=== PATIENT | male | born 1970 | race Caucasian/White ===

== ENCOUNTER 2017-03-22 00:08 | Emergency (ER) | payer MEDICAID ==
[~2017-03-22] VITALS: Ht 177.8 cm; Wt 89.8 kg
[~2017-03-22 00:08] MED LIST: AUGMENTIN 500 M1 TAB PO; AUGMENTIN 875-1 EACH PO; BACTRIM DS 8001 TAB PO; BACTROBAN2% TP; CIPRO 500MG TA500 MG PO; FLAGYL500 MG PO; FLONASE 50 MCG16 GM; KEFLEX 500MG.500 MG PO; LORTAB 5/500 501 TAB PO; NOMEDS *; PHENERGAN 25MG.25 M1 PO; PREDNISONE 20MG20 MG PO; SEPTRA DS 800 M1 TAB PO; VIBRAMYCIN 100100 MG PO; VICODIN 5/500 T1 TAB PO; ZANTAC 150150 MG PO; ZYRTEC ALLERGY10 MG PO
[2017-03-22 00:34] LABS: HEMOGLOBIN 15.4 g/dL (14.1-18.0); LYMPH # 1.6 K/mm3 (0.7-4.5); LYMPH % 12.7 % (10-50)
--- NOTE | 2017-03-22 01:24 | Emergency Room Report ---
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 N Clinical Suspician of Infection? N Mental Status: 1 - Regular (Normal Baseline) Sepsis Risk:Low Sepsis Risk Have you (or family members/close friends) recently traveled outside the [place]? N If Yes, where/when: Have you had exposure to infectious disease within the past month? N TB? Other? Specify: Source patient, RN notes reviewed, family, old records Exam Limitations no limitations Comment pt with 2 day hx of lower abd pain with nausea and has dec bowel movement and urination but no fever or vomiting - has hx of diverticulitis Cardiac Chest Pain Chest pain indicative of cardiac No Timing/Duration this evening Severity moderate ALLERGIES Coded Allergies: No Known Allergies (07/18/16) Home Medications Reported Medications No Home Medications (NO HOME MEDICATIONS) 1 X * ONCE History Medical History General CAD? No Angina: No MD: No Hypertension? No Hyperlipidemia? No CHF? No DVT? No PE? No COPD? No Asthma? No Anemia? No GERD? No Gastric ulcers? No GI Bleed? No Hernia? No Thyroid Problems? No Hypothyroidism? No CVA? No Seizures? No Diabetes? No Renal Insuffiency? No End Stage Renal Disease? No UTI? No Stones? No BPH? No GB Disease: No Nephritic Syndrome? No Asplenia? No Hepatitis? No Sickle Cell Disease? No Arthritis? No Migraines? No Cataracts? No Glaucoma? No MRSA? No HIV? No TB? No Anxiety? No Depression? No Cancer? Yes Site: VOCAL CHORDS More? Yes Additional hx: DIVERTICULITIS Immunization Hx DT/Tetanus 1-4 Years Ago Flu Refused Pneumonia Refuses Surgical Hx Previous Surgery?Y CIRCUMCISION I&D OF BOILS POLYPS VOCAL CHORDS COLONOSCOPY X2 POLYPS REMOVED COLON Family History Family Hx Diabetes Yes CAD Yes Hypertension Yes Hyperlipidemia No Cancer Yes TB No Social History Smoking Hx Smoker: Current Every Day Smoker Tobacco: Yes Type Cigarettes Packs/day 1 1/2 - 2 Packs Are you/the child exposed to second-hand smoke: Yes Alcohol Alcohol: No Drugs none Review of Systems All Other Systems Reviewed and Negative Constitutional denies fever Eyes denies drainage ENT denies: ear pain, epistaxis, throat pain. Respiratory denies cough, denies shortness of breath, denies wheezing Cardiovascular denies chest pain, denies palpitations, denies syncope Gastrointestinal see HPI, abdominal pain, denies diarrhea, nausea, vomiting Genitourinary denies: dysuria, frequency, hesitancy, hematuria. Musculoskeletal denies back pain, denies joint pain, denies joint swelling, denies neck pain Skin denies rash Psychiatric/Neurological denies headache, denies seizure Physical Exam Vital Signs Vital Signs Date Time Temp Pulse Resp B/P Pulse O2 O2 Flow FiO2 Ox Delivery Rate 03/22 137 20 03/22 137 20 03/22 0014 98.3 92 18 129/94 98 - WBC >12,000 or <4,000 or 10% bands? 2 or more SIRS Criteria Met? B/P:129/94 MAP:105 Creatinine >2.0? UA output<0.5ml/kg/hr for 2 hrs? Platelet count >100,000? Lactate >2.0mmol/1? INR >1.2 or PTT > than 60 sec? Evidence of Organ Dysfunction? Provider documented clinical suspician of infection? N Sepsis Criteria Count: 1 Sepsis Risk: Low Sepsis Risk General Appearance no apparent distress Eye Exam - bilateral eye PERRL, bilateral eye EOMI Ear, Nose, Throat normal ENT inspection Neck supple Respiratory Status No: respiratory distress. 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 No Results/Orders Laboratory Tests 03/22/17 0130: Urine Color YELLOW, Urine Appearance CLEAR, Urine pH 6.0, Ur Specific [place] <= 1.005, Urine Protein NEGATIVE, Urine Ketones NEGATIVE, Urine Blood 2+ H, Urine Nitrate NEGATIVE, Urine Bilirubin NEGATIVE, Urine Urobilinogen 0.2, Ur Leukocyte Esterase NEGATIVE, Urine RBC 5-10, Urine WBC 10-20, Ur Squamous Epith Cells 5-10 , Urine Glucose NEGATIVE 03/22/17 0025: Sodium 137, Potassium 3.2 L, Chloride 102, Carbon Dioxide 26, BUN 8, Creatinine 0.9, Estimated Creat Clear 129, Estimated GFR (MDRD) 90, Glucose 108 H, Calcium 8.9, Total Bilirubin 0.6, AST 11 L, ALT 19, Alkaline Phosphatase 113, Total Protein 7.4, Albumin 3.7, Globulin 3.7 H, Albumin/Globulin Ratio 1.0 L, Amylase 33, Lipase 53 L, WBC 12.8 H, RBC 5.24, Hgb 15.4, Hct 47.1, MCV 90.0, RDW 13.6, Plt Count 175, MPV 7.3 L, Gran % 79.1, Gran # 10.1 H, Lymphocytes % 12.7, Monocytes % 5.9, Eosinophils % 2.1, Basophils % 0.2, Lymphocytes # 1.6, Monocytes # 0.8, Eosinophils # 0.3, Basophils # 0.0, PUBS MCHC 32.8, MCH 29.5 Current Medication Orders Sig/Gene Start time Last Medication Dose Route Stop Time Status Admin Ketorolac 0 .STK-MED ONE 03/22 131 DC Tromethamine .ROUTE Levofloxacin 0 .STK-MED ONE 03/22 131 DC .ROUTE Metronidazole 100 ML .STK-MED ONE 03/22 131 DC IV Ondansetron HCl 0 .STK-MED ONE 03/22 131 DC .ROUTE Ketorolac 30 MG ONCE ONE 03/22 130 DC 03/22 Tromethamine IV 03/22 Levofloxacin 500 MG ONCE ONE 03/22 130 DC 03/22 PO 03/22 Metronidazole 100 ML ONCE ONE 03/22 130 AC 03/22 IV 03/22 Morphine Sulfate 4 MG ONCE ONE 03/22 130 DC 03/22 IV 03/22 Morphine Sulfate 0 .STK-MED ONE 03/22 130 DC .ROUTE Ondansetron HCl 4 MG ONCE ONE 03/22 130 DC 03/22 IV 03/22 Sodium Chloride 10 ML PRN PRN 03/22 0030 AC IV 03/23 0019 Orders Procedure Date/time Status DIET-NOTHING BY MOUTH 03/22 B Active CULTURE, URINE 03/[address] ABD & PELVIS W/O CONTRAST 03/[address] ABD/PELVIS REQ 03/22 001 Active IV SALINE LOCK 03/22 001 Active URINALYSIS/COMPLETE 03/22 001 Complete LIPASE 03/22 001 Complete CBC WITH AUTO DIFF 03/22 19 Complete CHEM 12 PROFILE 03/22 001 Complete AMYLASE 03/22 001 Complete XRAY/CT/US XRAY/CT/US CT abdomen, pelvis CT interpretation by discussed w/radiologist Time results known: 0147 CT Results abnormal (diverticulitis) Departure Departure Time of Disposition 0148 Disposition DC Home or Self Care(routine) Clinical Impression Primary Impression: Diverticulitis Condition STABLE Referrals Karine MELLO,Garett Sandhu (Family) Patient Instructions DI for Diverticulitis Additional Instructions use meds and see pcp for follow up Discharge Counseling Counseled pt/family regarding diagnosis, test results, medications/RX, follow up needs Prescriptions Current Visit Scripts Ciprofloxacin HCl (Cipro 500MG TAB) 500 MG PO BID #14 TAB Metronidazole (Flagyl) 500 MG PO TID #21 TAB HYDROCODONE/ACETAMINOPHEN ([place] 5-325 Tablet) 1 TAB PO Q6HP PRN pain #10 TAB ED Critical Care Critical Care No at 0151
[2017-03-22 01:35] LABS: URINE BILIRUBIN - DIPSTICK NEGATIVE (NEG); URINE BLOOD 2+ (NEG)
[2017-03-22] MEDS ORDERED: FLAGYL500 M1 PO (01:50)
[2017-03-22] MEDS ORDERED: NORCO 325 MG-51 TAB PO (01:50)
[2017-03-22] MEDS ORDERED: CIPRO 500MG TA500 MG PO (01:50)
[2017-03-22 02:08] VITALS: BP 129/94
--- NOTE | 2017-03-22 06:09 | RADIOLOGY REPORT PS360 ---
CT ABD PELVIS W/O CONTRAST CLINICAL INDICATION: Lower abdominal pain, history of diverticulitis ABD PAIN ORDERING PHYSICIAN: Dolores Milton MD PATIENT AGE: 46 years COMPARISON: 08/14/2012 TECHNIQUE: Axial images obtained with sagittal and coronal reformats. PROCEDURE: Oral Contrast: None IV Contrast: None . FINDINGS: Atelectatic or scarring noted in the lung bases. The liver, spleen, adrenal glands, pancreas, and gallbladder have an unremarkable unenhanced CT appearance. No renal calculi, ureteral calculi, or hydronephrosis. Unremarkable appendix. No intestinal obstruction. Colonic diverticulosis of the sigmoid colon. A diverticulum is also present at the hepatic flexure There is moderate thickening of the junction of the descending colon and sigmoid colon with stranding of the pericolic fat consistent with acute diverticulitis. Follow-up recommended to show the focal thickening does subside as neoplasm could have a similar appearance. No abscess or perforation apparent. Mild diffuse colon wall thickening noted throughout the colon which may be due to nondistention. No acute bony anomalies. The prostate is somewhat prominent at 4.6 cm with central calcification. There is a tiny umbilical hernia containing fat IMPRESSION: Diverticulitis of the junction of the proximal descending colon. No evidence of abscess or perforation.
== END 2017-03-22 02:10 | disposition home or self-care (01) ==
LOC: ER 00:08
PROVIDERS: Emergency Medicine
DX: K57.92 Diverticulitis of intestine, part unspecified, without perforation or abscess without bleeding (principal); Z85.21 Personal history of malignant neoplasm of larynx; Z87.19 Personal history of other diseases of the digestive system; F17.210 Nicotine dependence, cigarettes, uncomplicated
CPT/HCPCS: J2405

== ENCOUNTER → 2017-04-21 | Outpatient (CLI) | payer MEDICAID ==
[~2017-04-21] MED LIST changes: +FLAGYL500 M1 PO; +NORCO 325 MG-51 TAB PO
--- NOTE | 2017-04-21 16:58 | RADIOLOGY REPORT PS360 ---
CT ABD PELVIS W/ CONTRAST CLINICAL INDICATION: LLQ PAIN ORDERING PHYSICIAN: Garett Milton MD PATIENT AGE: 46 years COMPARISON: 03/22/2017 TECHNIQUE: Axial images obtained with sagittal and coronal reformats. PROCEDURE: Oral Contrast: Redicat IV Contrast: 75 mL [id number] . FINDINGS: The lung bases are clear. The liver, spleen, adrenal glands, pancreas, and gallbladder have an unremarkable appearance. No renal calculi or ureteral calculi. No hydronephrosis. Unremarkable appendix.. There is moderate thickening of the sigmoid colon with diverticulosis of the sigmoid colon. There is been improvement in the stranding of the pericolic fat in the sigmoid region. There is residual thickening of the colon may be related to some residual colitis. Neoplasm is not excluded. Consider colonoscopy for further evaluation. No evidence of abscess or perforation. No extra colonic gas evident. There is mild thickening of the urinary bladder. The prostate is somewhat prominent 5 cm. There is a hemangioma in the L2 vertebral body. IMPRESSION: 1. There has been improvement in the appearance of diverticulitis of the sigmoid colon compared to the previous exam with improvement in the pericolic inflammation. No abscess or extra colic gas evident. 2. There is however persistent thickening of the sigmoid colon which may be related to some residual inflammatory change/colitis. Neoplasm is also a consideration. Consider sigmoidoscopy for further evaluation. 3. Mild thickening of the urinary bladder wall nonspecific but may be seen with cystitis. 4. Mild prominence of the prostate
== END ==
LOC: RAD 10:45
DX: R10.32 Left lower quadrant pain (principal)
CPT/HCPCS: Q9967